=== PATIENT | female | born 1945 | race African-American/Black ===

== ENCOUNTER 2017-09-17 08:01 | Outpatient (CLI) | payer MEDICARE | END 2017-09-17 08:02 | disposition home or self-care (01) | LOC: BICMAMMO 08:01 | PROVIDERS: ATTEND Family Medicine | DX: Z12.31 Encounter for screening mammogram for malignant neoplasm of breast (principal) | CPT/HCPCS: 77063; 77067 ==

== ENCOUNTER 2020-10-20 10:30 | Outpatient (CLI) | payer MEDICARE | END 2020-10-20 10:31 | disposition home or self-care (01) | LOC: BICMAMMO 10:30 | PROVIDERS: ATTEND Family Medicine | DX: Z12.31 Encounter for screening mammogram for malignant neoplasm of breast (principal) | CPT/HCPCS: 77063; 77067 ==

== ENCOUNTER 2021-03-22 15:40 | Inpatient (IN) | payer MEDICARE ==
[2021-03-22 16:52] LABS: #Basophils 0.1 thou/uL (0.0-0.2); #Eosinphils 0.1 thou/uL (0.0-0.7); #Lymphocytes 2.6 thou/uL (1.20-3.40); #Monocytes 0.6 thou/uL (0.11-0.59); %Basophils 0.6 % (0.0-1.0); %Eosinophils 0.5 % (0.0-10.0); %Lymphocytes 20.8 % (21.0-51.0); %Monocytes 4.8 % (0.0-10.0); %Neutrophils 73.4 % (42.0-75.0); Hemoglobin 13.7 g/dL (12.0-16.0); Mean Corpuscular HGB CONC 31.6 g/dL (32.0-36.0); Mean Corpuscular Hemoglobin 29.5 pg (27.0-31.0); Mean Corpuscular Volume 93.1 fL (78.0-98.0); Mean Platelet Volume 8.3 fL (7.4-10.4); Platelet Count 247 thou/uL (130-400); RBC Distribution Width 13.3 % (11.5-14.5); Red Blood Cell (RBC) Count 4.65 mill/uL (4.20-5.40); White Blood Cell (WBC) Count 12.3 thou/uL (4.8-10.8)
[2021-03-22 17:16] LABS: ALT (SGPT) 9 U/L (8-55); AST (SGOT) 14 U/L (5-34); Albumin 3.6 g/dL (3.4-4.8); Alkaline Phosphatase 71 U/L (40-110); Anion Gap 12 mmol/L (10-20); BUN (Urea Nitrogen) 9 mg/dL (9.8-20.1); Bilirubin, Total 0.2 mg/dL (0.2-1.2); Calc. Creatinine Clearance 0 mL/min (70-130); Calcium 9.6 mg/dL (7.8-10.44); Carbon Dioxide 24 mmol/L (23-31); Chloride 108 mmol/L (98-107); Globulin 2.6 g/dL (2.4-3.5); Glucose 128 mg/dL (83-110); Magnesium 2.1 mg/dL (1.6-2.6); Potassium 3.8 mmol/L (3.5-5.1); Protein, Total 6.2 g/dL (5.8-8.1); Sodium 140 mmol/L (136-145)
[2021-03-22 18:16] LABS: Bilirubin Negative (Negative); Blood, Urine Negative (Negative); Clarity Clear (Clear); Glucose, Urine (Dipstick) Normal (Negative); Ketone, Urine Negative (Negative); Leukocyte Negative Leu/uL (Negative); Nitrite Negative (Negative); Protein, Urine (Dipstick) 20 mg/dL (Neg-Trace); Specific Gravity, Urine 1.015 (1.002-1.036); Urobilinogen Normal mg/dL (Less than 2)
[2021-03-22] MEDS ORDERED: Ondansetron PF 4 MG/2 ML Vial IVP PRN (20:03)
[2021-03-22] MEDS ORDERED: Acetaminophen 325 MG TAB PO PRN (20:03)
[2021-03-22] MEDS ORDERED: Acetaminophen 650 MG Suppository PR PRN (20:03)
[2021-03-22] MEDS ORDERED: Ondansetron ODT 4 MG TAB PO PRN (20:03)
[2021-03-22] MEDS ORDERED: Senokot S 8.6-50 MG TAB PO PRN (20:03)
[2021-03-22 20:09] LABS: Lactic Acid 2.8 mmol/L (0.5-2.2)
[2021-03-22 20:18] LABS: Troponin I Less than 0.010 ng/mL (< 0.028)
[2021-03-22 20:49] LABS: SARS-CoV-2 NAA Rapid Test Not Detected (NotDetected)
[2021-03-22 21:02] LABS: Hemoglobin A1c 6.1 % (4.0-6.0)
[2021-03-22 21:16] VITALS: BMI 25.8
[2021-03-22] MEDS: Sodium Chloride 0.9% 1,000 ML IV SCH (22:17)
[2021-03-22 22:57] LABS: Troponin I 0.014 ng/mL (< 0.028)
[2021-03-23 04:56] LABS: #Lymphocytes 3.1 thou/uL (1.20-3.40); #Monocytes 0.5 thou/uL (0.11-0.59); #Neutrophils 6.1 thou/uL (1.40-6.50); %Basophils 0.3 % (0.0-1.0); %Eosinophils 0.5 % (0.0-10.0); %Monocytes 5.1 % (0.0-10.0); %Neutrophils 62.2 % (42.0-75.0); Hemoglobin 12.9 g/dL (12.0-16.0); Mean Corpuscular HGB CONC 33.1 g/dL (32.0-36.0); Mean Corpuscular Hemoglobin 30.8 pg (27.0-31.0); Mean Platelet Volume 8.5 fL (7.4-10.4); Platelet Count 237 thou/uL (130-400); RBC Distribution Width 13.2 % (11.5-14.5); White Blood Cell (WBC) Count 9.7 thou/uL (4.8-10.8)
[2021-03-23 05:16] LABS: Anion Gap 11 mmol/L (10-20); BUN (Urea Nitrogen) 7 mg/dL (9.8-20.1); Calc. Creatinine Clearance 84 mL/min (70-130); Calcium 9.1 mg/dL (7.8-10.44); Carbon Dioxide 23 mmol/L (23-31); Chloride 113 mmol/L (98-107); Glucose 92 mg/dL (83-110); Sodium 143 mmol/L (136-145)
[2021-03-23] MEDS ORDERED: FLU VACC QS2021-22(65YR UP)/PF 240 MCG/0.7 ML SYRINGE IM ONE (09:00)
[2021-03-23] MEDS: Sodium Chloride 0.9% 1,000 ML IV SCH (09:22)
[2021-03-23] MEDS ORDERED: Bisacodyl 5 MG TAB PO SCH (10:30)
[2021-03-23] MEDS ORDERED: Enoxaparin Sodium 80 MG/0.8 ML SYRINGE SC SCH ×2 (13:30→21:00)
[2021-03-23] MEDS ORDERED: Communication Order-Pharmacy FS SCH (15:45)
[2021-03-24 05:06] LABS: #Eosinphils 0.1 thou/uL (0.0-0.7); #Lymphocytes 2.6 thou/uL (1.20-3.40); #Monocytes 0.5 thou/uL (0.11-0.59); #Neutrophils 4.2 thou/uL (1.40-6.50); %Basophils 0.6 % (0.0-1.0); %Lymphocytes 34.7 % (21.0-51.0); %Monocytes 6.6 % (0.0-10.0); %Neutrophils 57.1 % (42.0-75.0); Mean Corpuscular Hemoglobin 29.6 pg (27.0-31.0); Mean Corpuscular Volume 92.6 fL (78.0-98.0); Mean Platelet Volume 8.7 fL (7.4-10.4); Platelet Count 253 thou/uL (130-400); RBC Distribution Width 13.3 % (11.5-14.5); Red Blood Cell (RBC) Count 4.38 mill/uL (4.20-5.40); White Blood Cell (WBC) Count 7.4 thou/uL (4.8-10.8)
[2021-03-24 05:36] LABS: Anion Gap 11 mmol/L (10-20); BUN (Urea Nitrogen) 7 mg/dL (9.8-20.1); Calc. Creatinine Clearance 77 mL/min (70-130); Calcium 9.3 mg/dL (7.8-10.44); Carbon Dioxide 22 mmol/L (23-31); Chloride 110 mmol/L (98-107); Glucose 84 mg/dL (83-110); Potassium 3.8 mmol/L (3.5-5.1); Sodium 139 mmol/L (136-145)
[2021-03-24] MEDS ORDERED: Midazolam HCl 2 mg/2 ml Vial ONE (08:10)
[2021-03-24] MEDS ORDERED: Nitroglycerin 0.4 MG TAB (25 Tab Bottle) SL PRN (08:28)
[2021-03-24] MEDS ORDERED: Sodium Chloride 0.9% 200 ML IV PRN (08:28)
[2021-03-24] MEDS ORDERED: Acetaminophen/Codeine 30-300mg Tablet PO PRN ×2 (08:28)
[2021-03-24] MEDS: Atorvastatin Calcium 40 MG TAB PO SCH (20:15)
[2021-03-24] MEDS ORDERED: Heparin 10,000 UNITS/ 10 ML VIAL SLOW IVP SCH (21:45)
[2021-03-24] MEDS ORDERED: Aspirin 325 MG TAB PO SCH (22:00)
[2021-03-24] MEDS: Heparin 25,000 units/D5W 500 ML IV SCH (22:03)
[2021-03-25 05:22] LABS: INR-International Normal Ratio 1.1; Prothrombin Time 14.3 sec (12.0-14.7)
[2021-03-25] MEDS: Carvedilol 3.125 MG TAB PO SCH ×2 (08:34→16:38)
[2021-03-25] MEDS: Aspirin 325 MG TAB PO SCH (08:34)
[2021-03-25] MEDS: Clopidogrel Bisulfate 75 MG TAB PO SCH (08:35)
[2021-03-25] MEDS ORDERED: Aspirin 81 mg Enteric Coated Tablet PO SCH (09:00)
[2021-03-25] MEDS ORDERED: Warfarin Sodium 5 MG TAB PO SCH (17:00)
[2021-03-25] MEDS: Atorvastatin Calcium 40 MG TAB PO SCH (20:47)
[2021-03-25] MEDS ORDERED: Atorvastatin Calcium 40 MG TAB PO SCH (21:00)
[2021-03-26 05:50] LABS: INR-International Normal Ratio 1.1
[2021-03-26] MEDS: Heparin 25,000 units/D5W 500 ML IV SCH (06:01)
[2021-03-26 06:04] LABS: PTT 117.7 sec (22.9-36.1)
[2021-03-26] MEDS ORDERED: Warfarin Sodium 5 MG TAB PO SCH (08:39)
[2021-03-26] MEDS: Clopidogrel Bisulfate 75 MG TAB PO SCH (09:49)
[2021-03-26] MEDS: Carvedilol 3.125 MG TAB PO SCH ×2 (09:49→16:28)
[2021-03-26] MEDS: metFORMIN 500 MG TAB PO SCH (09:49)
[2021-03-26] MEDS: Aspirin 81 mg Enteric Coated Tablet PO SCH (09:53)
[2021-03-26] MEDS: Aspirin 325 MG TAB PO SCH (09:55)
[2021-03-26] MEDS: Warfarin Sodium 7.5 MG TAB PO SCH (16:28)
[2021-03-26] MEDS: Atorvastatin Calcium 40 MG TAB PO SCH (21:03)
[2021-03-27 05:36] LABS: Anion Gap 12 mmol/L (10-20); BUN (Urea Nitrogen) 6 mg/dL (9.8-20.1); Calc. Creatinine Clearance 78 mL/min (70-130); Carbon Dioxide 22 mmol/L (23-31); Chloride 110 mmol/L (98-107); Glucose 86 mg/dL (83-110); Potassium 3.7 mmol/L (3.5-5.1); Sodium 140 mmol/L (136-145)
[2021-03-27 05:40] LABS: INR-International Normal Ratio 1.2; Prothrombin Time 15.8 sec (12.0-14.7)
[2021-03-27 05:41] LABS: PTT 82.6 sec (22.9-36.1)
[2021-03-27 06:31] LABS: #Basophils 0.1 thou/uL (0.0-0.2); #Eosinphils 0.1 thou/uL (0.0-0.7); #Monocytes 0.6 thou/uL (0.11-0.59); #Neutrophils 4.1 thou/uL (1.40-6.50); %Basophils 1.3 % (0.0-1.0); %Eosinophils 1.4 % (0.0-10.0); %Lymphocytes 44.3 % (21.0-51.0); Hemoglobin 13.4 g/dL (12.0-16.0); Mean Corpuscular HGB CONC 34.9 g/dL (32.0-36.0); Mean Corpuscular Hemoglobin 31.9 pg (27.0-31.0); Mean Corpuscular Volume 91.3 fL (78.0-98.0); Mean Platelet Volume 8.6 fL (7.4-10.4); Platelet Count 217 thou/uL (130-400); Red Blood Cell (RBC) Count 4.22 mill/uL (4.20-5.40); White Blood Cell (WBC) Count 8.9 thou/uL (4.8-10.8)
[2021-03-27] MEDS: Aspirin 81 mg Enteric Coated Tablet PO SCH (09:21)
[2021-03-27] MEDS: metFORMIN 500 MG TAB PO SCH (09:22)
[2021-03-27] MEDS: Carvedilol 3.125 MG TAB PO SCH ×2 (09:22→16:21)
[2021-03-27] MEDS: Warfarin Sodium 7.5 MG TAB PO SCH (16:21)
[2021-03-27] MEDS: Atorvastatin Calcium 40 MG TAB PO SCH (20:37)
[2021-03-28] MEDS: Heparin 25,000 units/D5W 500 ML IV SCH (00:49)
[2021-03-28 05:06] LABS: INR-International Normal Ratio 1.7; Prothrombin Time 20.3 sec (12.0-14.7)
[2021-03-28 09:55] LABS: INR-International Normal Ratio 1.9; Prothrombin Time 21.8 sec (12.0-14.7)
[2021-03-28] MEDS: Aspirin 81 mg Enteric Coated Tablet PO SCH (09:55)
[2021-03-28] MEDS: Carvedilol 3.125 MG TAB PO SCH ×2 (09:55→16:38)
[2021-03-28] MEDS: metFORMIN 500 MG TAB PO SCH (09:55)
[2021-03-28] MEDS: Warfarin Sodium 7.5 MG TAB PO SCH (16:38)
[2021-03-28] MEDS: Atorvastatin Calcium 40 MG TAB PO SCH (21:15)
[2021-03-29 05:30] LABS: PTT 122.6 sec (22.9-36.1)
[2021-03-29] MEDS: Aspirin 81 mg Enteric Coated Tablet PO SCH (08:39)
[2021-03-29] MEDS: metFORMIN 500 MG TAB PO SCH (08:39)
[2021-03-29] MEDS: Carvedilol 3.125 MG TAB PO SCH (08:39)
[2021-03-29 10:45] LABS: INR-International Normal Ratio 2.5; Prothrombin Time 27.6 sec (12.0-14.7)
[2021-03-29 12:49] VITALS: BP 109/66; TEMP 98
== END 2021-03-29 13:15 | disposition home or self-care (01) | DRG 287 ==
LOC: ERS 15:40 → 2NO 19:04 → OBSVTOIN 03-23 17:21
PROVIDERS: ADMIT Internal Medicine; ATTEND Internal Medicine
PROC: 4A023N7 Measurement of Cardiac Sampling and Pressure, Left Heart, Percutaneous Approach (ICD-10-PCS; principal; 2021-03-24)
PROC: B2111ZZ Fluoroscopy of Multiple Coronary Arteries using Low Osmolar Contrast (ICD-10-PCS; 2021-03-24)
DX: I51.3 Intracardiac thrombosis, not elsewhere classified (principal); E87.2 Acidosis; I42.9 Cardiomyopathy, unspecified; E78.00 Pure hypercholesterolemia, unspecified; R29.898 Other symptoms and signs involving the musculoskeletal system; D72.829 Elevated white blood cell count, unspecified; E11.9 Type 2 diabetes mellitus without complications; F17.210 Nicotine dependence, cigarettes, uncomplicated; I25.10 Atherosclerotic heart disease of native coronary artery without angina pectoris; Z20.822 Contact with and (suspected) exposure to COVID-19; Z90.710 Acquired absence of both cervix and uterus; Z71.6 Tobacco abuse counseling
CPT/HCPCS: 36415; 70450; 71045; 80048; 80053; 81003; 83036; 83605; 83735; 83880; 84443; 84484; 85025; 85610; 85730; 87040; 93005; 93306; 93454; 93880; 96372; 99152; G0378; J1644; J1650; J2250; J7050; U0002

== ENCOUNTER 2023-11-07 13:31 | Outpatient (CLI) | payer MEDICARE | END 2023-11-07 13:32 | disposition home or self-care (01) | LOC: BICMAMMO 13:31 | PROVIDERS: ATTEND Student in an Organized Health Care Education/Training Program | DX: Z13.820 Encounter for screening for osteoporosis (principal); M85.89 Other specified disorders of bone density and structure, multiple sites | CPT/HCPCS: 77080 ==